=== PATIENT | male | born 1945 | race Caucasian/White ===

== ENCOUNTER 2021-04-28 19:06 | Inpatient (IN) ==
[2021-04-28] MEDS ORDERED: SODIUM CHLORIDE 0.9% 1,000 ML IV STA (19:20)
[2021-04-28 19:34] LABS: Basophils % 0.1 % (0.0-0.8); Eosinophils % 0.1 % (0.00-10.9); Hematocrit 49.3 VOL% (42.0-52.0); Hemoglobin 16.2 GM/DL (14.0-18.0); Immature Granulocytes % 1.7 %; Immature Granulocytes Absolute 0.24 #; Lymphocytes # 0.7 10*3/uL (1.4-4.0); Lymphocytes % 5.2 % (21.2-54.2); Mean Corpuscular HGB Conc 32.9 GM/DL (32-36); Mean Corpuscular Volume 91.1 FL (87-102); Mean Platelet Volume 10.6 FL (9.6-12.0); Monocytes % 7.9 % (1.7-12.7); NRBC # 0.02 10*3/uL; Platelet Count 270 T/CUMM (130-400); Red Blood Count 5.41 MC/CUMM (3.8-5.5); Red Cell Distribution Width 15.2 % (9.3-17.3)
[2021-04-28 19:48] LABS: ABG Base Excess 0.2 MMOL/L (-2.5-2.5); ABG HCO3 24.3 MMOL/L (20-26); ABG Oxygen Saturation 85.8 % (95-100); ABG PCO2 45.2 MM HG (35-48); ABG PH 7.369 (7.35-7.45); ABG PO2 57.5 MM HG (80-95); ABG TCO2 21.9 MMOL/L (23-27); Allen Test Positive
[2021-04-28 19:52] LABS: PT Patient Result 11.3 SECS (10.5-12.0)
[2021-04-28 19:54] LABS: Albumin 2.8 G/DL (3.4-5.0); Bilirubin,Total 0.5 MG/DL (0.20-1.00); Calcium 8.3 MG/DL (8.5-10.1); Total Protein 6.4 G/DL (6.4-8.2)
[2021-04-28] MEDS ORDERED: DEXAMETHASONE 4 MG/1 ML VIAL IV STA (19:56)
[2021-04-28] MEDS ORDERED: AZITHROMYCIN INJ 500 MG in SODIUM CHLORIDE 0.9% 250 ML IV STA (19:56)
[2021-04-28] MEDS ORDERED: DEXTROSE 50% 25 GM/50 ML VIAL IV PRN ×2 (21:10)
[2021-04-28] MEDS ORDERED: GLUCAGON 1 MG VIAL IM PRN ×2 (21:10)
[2021-04-28] MEDS ORDERED: MELATONIN 3 MG TABLET PO PRN (21:10)
[2021-04-28] MEDS ORDERED: ONDANSETRON 4 MG/2 ML VIAL IV PRN (21:10)
[2021-04-28] MEDS ORDERED: ZALEPLON 5 MG CAPSULE PO PRN (21:10)
[2021-04-28] MEDS: ENOXAPARIN 40 MG/0.4 ML SYRINGE SUBCUT SCH (22:20)
[2021-04-28] MEDS: methylPREDNISolone SOD SUC 40 MG/1 ML VIAL IV SCH (22:20)
[2021-04-28] MEDS: PIPERACILLIN/TAZOBACTAM 3,375 MG in SODIUM CHLORIDE 0.9% 100 ML IV SCH (22:21)
[2021-04-28] MEDS: guaiFENesin/DM ER 600-30 MG TABLET PO SCH (23:58)
[2021-04-29] MEDS: LEVOFLOXACIN INJ 750 MG/150 ML PREMIX IV SCH (03:41)
[2021-04-29] MEDS: methylPREDNISolone SOD SUC 40 MG/1 ML VIAL IV SCH ×4 (04:29→22:20)
[2021-04-29] MEDS: PIPERACILLIN/TAZOBACTAM 3,375 MG in SODIUM CHLORIDE 0.9% 100 ML IV SCH ×3 (05:11→22:20)
[2021-04-29 07:48] LABS: Albumin 2.6 G/DL (3.4-5.0); Bilirubin,Total 0.6 MG/DL (0.20-1.00); Calcium 8.4 MG/DL (8.5-10.1); Ferritin 506.1 ng/ml (26-388); Potassium 4.2 MMOL/L (3.5-5.1); Total Protein 7.4 G/DL (6.4-8.2)
[2021-04-29] MEDS: ENOXAPARIN 40 MG/0.4 ML SYRINGE SUBCUT SCH ×2 (08:17→22:19)
[2021-04-29] MEDS: guaiFENesin/DM ER 600-30 MG TABLET PO SCH ×2 (08:17→22:19)
[2021-04-29] MEDS: ZINC GLUCONATE 50 MG TABLET PO SCH (08:17)
[2021-04-29] MEDS: ASCORBIC ACID 500 MG TABLET PO SCH ×2 (08:17→22:19)
[2021-04-29] MEDS: CHOLECALCIFEROL 1,000 UNIT TABLET PO SCH (08:17)
[2021-04-29] MEDS: CETIRIZINE 10 MG TABLET PO SCH (08:17)
[2021-04-29] MEDS: FAMOTIDINE 20 MG TABLET PO SCH ×2 (08:17→22:19)
[2021-04-29 08:51] LABS: Basophils % 0.2 % (0.0-0.8); Hematocrit 50.5 VOL% (42.0-52.0); Hemoglobin 17.1 GM/DL (14.0-18.0); Immature Granulocytes % 2.4 %; Immature Granulocytes Absolute 0.28 #; Lymphocytes # 0.7 10*3/uL (1.4-4.0); Lymphocytes % 6.1 % (21.2-54.2); Mean Corpuscular HGB Conc 33.9 GM/DL (32-36); Mean Corpuscular Volume 87.7 FL (87-102); Mean Platelet Volume 10.7 FL (9.6-12.0); Monocytes % 4.1 % (1.7-12.7); Neutrophils % 87.2 % (38.7-73.9); Platelet Count 299 T/CUMM (130-400); Red Blood Count 5.76 MC/CUMM (3.8-5.5); Red Cell Distribution Width 15.1 % (9.3-17.3); White Blood Count 11.8 T/CUMM (4-12)
[2021-04-29] MEDS ORDERED: PANTOPRAZOLE 40 MG TABLET PO SCH (09:00)
[2021-04-29 09:12] LABS: Lymphocytes 7 % (20-55); Platelet Estimate Adequate; Segmented Neutrophils 87 % (50-85); Total Cells Counted 100
[2021-04-29 09:49] LABS: ABG Base Excess 1.1 MMOL/L (-2.5-2.5); ABG HCO3 25.1 MMOL/L (20-26); ABG Oxygen Saturation 87.7 % (95-100); ABG PCO2 43.6 MM HG (35-48); ABG PH 7.392 (7.35-7.45); ABG TCO2 21.9 MMOL/L (23-27)
[2021-04-29] MEDS: OXYBUTYNIN 5 MG TABLET PO SCH ×2 (10:04→22:19)
[2021-04-29] MEDS: INSULIN REGULAR 100 UNIT/ML SUBCUT SCH ×4 (10:25→22:20)
[2021-04-29] MEDS ORDERED: REMDESIVIR 200 MG in SODIUM CHLORIDE 0.9% 210 ML IV ONE (11:00)
[2021-04-29 18:17] LABS: Bilirubin,Urine Negative (Negative); Blood, Urine Large mg/dL (Negative); Glucose,Urine (UA) Negative (Negative); Hyaline Casts,Urine 28 /LPF (0-3); Ketones,Urine Negative (Negative); Mucus,Urine Occasional /LPF (Occasional); Nitrite,Urine Negative (Negative); Protein,Urine 100 MG/DL; RBC,Urine 595 /HPF (0-4); Squamous Epithelial Cell,Urine Occasional /HPF (0-10); Urine Appearance CLEAR (Clear); Urine Color Yellow (Yellow); Urine Specific Gravity 1.031 (1.001-1.035); Urine Urobilinogen < 2.0 EU/DL (0.2-1.0)
[2021-04-29 21:04] LABS: ABG Base Excess 1.9 MMOL/L (-2.5-2.5); ABG HCO3 25.7 MMOL/L (20-26); ABG Oxygen Saturation 86.5 % (95-100); ABG PCO2 45.1 MM HG (35-48); ABG PH 7.393 (7.35-7.45); ABG PO2 56.1 MM HG (80-95); ABG TCO2 22.8 MMOL/L (23-27)
[2021-04-30] MEDS: methylPREDNISolone SOD SUC 40 MG/1 ML VIAL IV SCH ×4 (05:16→20:53)
[2021-04-30] MEDS: PIPERACILLIN/TAZOBACTAM 3,375 MG in SODIUM CHLORIDE 0.9% 100 ML IV SCH ×3 (05:16→20:53)
[2021-04-30 06:11] LABS: Alanine Aminotransferase 525 U/L (16-61); Albumin 2.3 G/DL (3.4-5.0); Alkaline Phosphatase 75 U/L (45-117); Aspartate Amino Transferase 280 U/L (0-37); Bilirubin,Direct < 0.100 MG/DL (0.0-0.20); Bilirubin,Indirect 0.7 MG/DL (0.0-1.0)
[2021-04-30 06:20] LABS: Calcium 8.7 MG/DL (8.5-10.1); Osmolality,Calculated 278.1 MOS/KG (273-304); Potassium 4.2 MMOL/L (3.5-5.1)
[2021-04-30 06:22] LABS: Basophils % 0.1 % (0.0-0.8); Eosinophils # 0.1 10*3/uL (0.0-0.87); Eosinophils % 0.4 % (0.00-10.9); Hematocrit 53.5 VOL% (42.0-52.0); Hemoglobin 17.7 GM/DL (14.0-18.0); Immature Granulocytes % 3.8 %; Immature Granulocytes Absolute 0.69 #; Lymphocytes # 1.2 10*3/uL (1.4-4.0); Lymphocytes % 6.5 % (21.2-54.2); Mean Corpuscular HGB Conc 33.1 GM/DL (32-36); Mean Platelet Volume 10.9 FL (9.6-12.0); Monocytes % 5.9 % (1.7-12.7); NRBC # 0.02 10*3/uL; Neutrophils % 83.3 % (38.7-73.9); Platelet Count 311 T/CUMM (130-400); Red Blood Count 5.69 MC/CUMM (3.8-5.5); White Blood Count 18.1 T/CUMM (4-12)
[2021-04-30 06:25] LABS: Ferritin 507.3 ng/mL (26-388)
[2021-04-30 06:49] LABS: Lymphocytes 9 % (20-55); Segmented Neutrophils 87 % (50-85); Total Cells Counted 100
[2021-04-30 06:50] LABS: Hypochromasia 1+; Target Cells Slight
[2021-04-30 06:51] LABS: Anisocytosis 1+; Microcytosis 1+; Platelet Estimate Normal
[2021-04-30 08:46] LABS: ABG Base Excess 2.8 MMOL/L (-2.5-2.5); ABG HCO3 26.3 MMOL/L (20-26); ABG Oxygen Saturation 81.9 % (95-100); ABG PCO2 43.3 MM HG (35-48); ABG PH 7.416 (7.35-7.45); ABG PO2 50.1 MM HG (80-95)
[2021-04-30] MEDS: guaiFENesin/DM ER 600-30 MG TABLET PO SCH ×2 (09:29→20:50)
[2021-04-30] MEDS: FAMOTIDINE 20 MG TABLET PO SCH ×2 (09:30→20:50)
[2021-04-30] MEDS: ZINC GLUCONATE 50 MG TABLET PO SCH (09:30)
[2021-04-30] MEDS: CHOLECALCIFEROL 1,000 UNIT TABLET PO SCH (09:30)
[2021-04-30] MEDS: ASCORBIC ACID 500 MG TABLET PO SCH ×2 (09:30→20:51)
[2021-04-30] MEDS: ENOXAPARIN 40 MG/0.4 ML SYRINGE SUBCUT SCH (09:30)
[2021-04-30] MEDS: CETIRIZINE 10 MG TABLET PO SCH (09:30)
[2021-04-30] MEDS: OXYBUTYNIN 5 MG TABLET PO SCH ×2 (09:30→20:50)
[2021-04-30] MEDS: INSULIN REGULAR 100 UNIT/ML SUBCUT SCH ×4 (09:31→20:51)
[2021-04-30] MEDS: LEVOFLOXACIN INJ 750 MG/150 ML PREMIX IV SCH (09:31)
[2021-04-30] MEDS: REMDESIVIR 100 MG in SODIUM CHLORIDE 0.9% 100 ML IV SCH (11:18)
[2021-04-30] MEDS: ENOXAPARIN 120 MG/0.8 ML SYRINGE SUBCUT SCH (14:46)
[2021-04-30] MEDS: MELATONIN 3 MG TABLET PO SCH (20:57)
[2021-04-30] MEDS: ALBUTEROL INHALER 18 GM INH SCH (22:35)
[2021-04-30] MEDS: CHOLECALCIFEROL 5,000 UNIT TABLET PO SCH (22:35)
[2021-04-30] MEDS: ACETAMINOPHEN 325 MG TABLET PO PRN (23:53)
[2021-05-01] MEDS: ENOXAPARIN 120 MG/0.8 ML SYRINGE SUBCUT SCH ×2 (02:05→13:37)
[2021-05-01] MEDS: methylPREDNISolone SOD SUC 40 MG/1 ML VIAL IV SCH ×4 (02:05→20:32)
[2021-05-01] MEDS: ALBUTEROL INHALER 18 GM INH SCH ×5 (02:05→20:32)
[2021-05-01] MEDS: PIPERACILLIN/TAZOBACTAM 3,375 MG in SODIUM CHLORIDE 0.9% 100 ML IV SCH ×3 (04:08→20:32)
[2021-05-01 05:58] LABS: Basophils # 0.1 10*3/uL (0.0-0.2); Basophils % 0.3 % (0.0-0.8); Hematocrit 49.6 VOL% (42.0-52.0); Hemoglobin 16.3 GM/DL (14.0-18.0); Immature Granulocytes Absolute 0.23 #; Lymphocytes # 0.6 10*3/uL (1.4-4.0); Lymphocytes % 2.8 % (21.2-54.2); Mean Corpuscular HGB Conc 32.9 GM/DL (32-36); Mean Corpuscular Volume 90.5 FL (87-102); Mean Platelet Volume 10.5 FL (9.6-12.0); Monocytes % 3.4 % (1.7-12.7); NRBC # 0.04 10*3/uL; Neutrophils % 92.5 % (38.7-73.9); Platelet Count 326 T/CUMM (130-400); Red Blood Count 5.48 MC/CUMM (3.8-5.5); Red Cell Distribution Width 15.1 % (9.3-17.3); White Blood Count 22.2 T/CUMM (4-12)
[2021-05-01 06:27] LABS: Calcium 8.8 MG/DL (8.5-10.1); Osmolality,Calculated 280.1 MOS/KG (273-304); Potassium 4.5 MMOL/L (3.5-5.1)
[2021-05-01 06:36] LABS: Ferritin 474.4 ng/mL (26-388)
[2021-05-01 06:40] LABS: Albumin 2.3 G/DL (3.4-5.0); Bilirubin,Direct 0.22 MG/DL (0.0-0.20); Bilirubin,Indirect 0.8 MG/DL (0.0-1.0); Total Protein 6.4 G/DL (6.4-8.2)
[2021-05-01 06:48] LABS: Band Neutrophils 15 % (0-10); Lymphocytes 5 % (20-55); Platelet Estimate Normal; Segmented Neutrophils 75 % (50-85); Total Cells Counted 100
[2021-05-01 06:49] LABS: Anisocytosis 1+; Macrocytosis 1+; Polychromasia Slight
[2021-05-01] MEDS: INSULIN REGULAR 100 UNIT/ML SUBCUT SCH ×4 (07:20→21:40)
[2021-05-01] MEDS: OXYBUTYNIN 5 MG TABLET PO SCH ×2 (08:45→20:32)
[2021-05-01] MEDS: guaiFENesin/DM ER 600-30 MG TABLET PO SCH ×2 (08:45→20:32)
[2021-05-01] MEDS: CHOLECALCIFEROL 5,000 UNIT TABLET PO SCH ×2 (08:46→20:32)
[2021-05-01] MEDS: FAMOTIDINE 20 MG TABLET PO SCH ×2 (08:46→20:32)
[2021-05-01] MEDS: ASCORBIC ACID 500 MG TABLET PO SCH ×2 (08:46→20:32)
[2021-05-01] MEDS: CETIRIZINE 10 MG TABLET PO SCH (08:48)
[2021-05-01] MEDS: ZINC GLUCONATE 50 MG TABLET PO SCH (08:48)
[2021-05-01] MEDS: LEVOFLOXACIN INJ 750 MG/150 ML PREMIX IV SCH (09:15)
[2021-05-01] MEDS: REMDESIVIR 100 MG in SODIUM CHLORIDE 0.9% 100 ML IV SCH (10:52)
[2021-05-01] MEDS: MELATONIN 3 MG TABLET PO SCH (20:32)
[2021-05-01] MEDS ORDERED: ALBUTEROL/IPRATROPIUM 3 ML NEB RESP TX PRN (20:50)
[2021-05-01] MEDS ORDERED: ACETYLCYSTEINE 20% 800 MG/4 ML VIAL RESP TX SCH (23:00)
[2021-05-01] MEDS: ACETYLCYSTEINE 20% 800 MG/4 ML VIAL RESP TX SCH (23:55)
[2021-05-01] MEDS: ALBUTEROL/IPRATROPIUM 3 ML NEB RESP TX SCH (23:55)
[2021-05-02] MEDS: ALBUTEROL INHALER 18 GM INH SCH ×6 (00:18→20:55)
[2021-05-02] MEDS: ALBUTEROL/IPRATROPIUM 3 ML NEB RESP TX SCH ×5 (03:00→20:00)
[2021-05-02] MEDS: PIPERACILLIN/TAZOBACTAM 3,375 MG in SODIUM CHLORIDE 0.9% 100 ML IV SCH ×3 (04:02→20:55)
[2021-05-02] MEDS: methylPREDNISolone SOD SUC 40 MG/1 ML VIAL IV SCH ×4 (04:02→20:57)
[2021-05-02 05:16] LABS: Basophils # 0.1 10*3/uL (0.0-0.2); Basophils % 0.3 % (0.0-0.8); Hematocrit 48.1 VOL% (42.0-52.0); Hemoglobin 16.3 GM/DL (14.0-18.0); Immature Granulocytes % 1.6 %; Immature Granulocytes Absolute 0.38 #; Lymphocytes # 0.7 10*3/uL (1.4-4.0); Lymphocytes % 3.1 % (21.2-54.2); Mean Corpuscular HGB Conc 33.9 GM/DL (32-36); Mean Corpuscular Volume 89.4 FL (87-102); Mean Platelet Volume 10.2 FL (9.6-12.0); Monocytes % 2.8 % (1.7-12.7); Neutrophils % 92.2 % (38.7-73.9); Platelet Count 348 T/CUMM (130-400); Red Blood Count 5.38 MC/CUMM (3.8-5.5); Red Cell Distribution Width 15.2 % (9.3-17.3); White Blood Count 24.2 T/CUMM (4-12)
[2021-05-02 05:34] LABS: Calcium 8.3 MG/DL (8.5-10.1); Osmolality,Calculated 282.1 MOS/KG (273-304); Potassium 4.4 MMOL/L (3.5-5.1)
[2021-05-02 05:35] LABS: Bilirubin,Direct 0.22 MG/DL (0.0-0.20); Bilirubin,Indirect 0.9 MG/DL (0.0-1.0); Bilirubin,Total 1.1 MG/DL (0.20-1.00); Total Protein 6.2 G/DL (6.4-8.2)
[2021-05-02 05:37] LABS: Ferritin 442.4 ng/mL (26-388)
[2021-05-02 05:47] LABS: Hypochromasia Slight; Lymphocytes 2 % (20-55); Microcytosis 1+; Platelet Estimate Normal; Segmented Neutrophils 93 % (50-85); Total Cells Counted 100
[2021-05-02] MEDS: ACETYLCYSTEINE 20% 800 MG/4 ML VIAL RESP TX SCH ×2 (06:57→15:06)
[2021-05-02 09:31] LABS: ABG Base Excess 3.8 MMOL/L (-2.5-2.5); ABG HCO3 27.5 MMOL/L (20-26); ABG Oxygen Saturation 89.1 % (95-100); ABG PCO2 48.1 MM HG (35-48); ABG PH 7.399 (7.35-7.45); ABG TCO2 24.8 MMOL/L (23-27)
[2021-05-02] MEDS: ASCORBIC ACID 500 MG TABLET PO SCH ×2 (10:23→20:56)
[2021-05-02] MEDS: CETIRIZINE 10 MG TABLET PO SCH (10:23)
[2021-05-02] MEDS: ZINC GLUCONATE 50 MG TABLET PO SCH (10:23)
[2021-05-02] MEDS: OXYBUTYNIN 5 MG TABLET PO SCH ×2 (10:24→20:56)
[2021-05-02] MEDS: CHOLECALCIFEROL 5,000 UNIT TABLET PO SCH ×2 (10:24→20:56)
[2021-05-02] MEDS: FAMOTIDINE 20 MG TABLET PO SCH ×2 (10:24→20:56)
[2021-05-02] MEDS: guaiFENesin/DM ER 600-30 MG TABLET PO SCH ×2 (10:24→20:56)
[2021-05-02] MEDS: INSULIN REGULAR 100 UNIT/ML SUBCUT SCH ×4 (10:25→20:57)
[2021-05-02] MEDS: THIAMINE 200 MG/2 ML VIAL IV SCH (10:40)
[2021-05-02] MEDS: LEVOFLOXACIN INJ 750 MG/150 ML PREMIX IV SCH (10:53)
[2021-05-02] MEDS: ENOXAPARIN 120 MG/0.8 ML SYRINGE SUBCUT SCH ×2 (11:54→20:56)
[2021-05-02] MEDS: REMDESIVIR 100 MG in SODIUM CHLORIDE 0.9% 100 ML IV SCH (12:41)
[2021-05-02] MEDS: SODIUM CHLORIDE 0.9% 1,000 ML IV SCH (12:44)
[2021-05-02] MEDS: MELATONIN 3 MG TABLET PO SCH (20:56)
[2021-05-03] MEDS: ALBUTEROL/IPRATROPIUM 3 ML NEB RESP TX SCH ×7 (00:10→23:50)
[2021-05-03] MEDS: ACETYLCYSTEINE 20% 800 MG/4 ML VIAL RESP TX SCH ×4 (00:10→23:50)
[2021-05-03] MEDS: ALBUTEROL INHALER 18 GM INH SCH ×4 (03:07→17:31)
[2021-05-03] MEDS: methylPREDNISolone SOD SUC 40 MG/1 ML VIAL IV SCH ×4 (04:35→19:58)
[2021-05-03] MEDS: PIPERACILLIN/TAZOBACTAM 3,375 MG in SODIUM CHLORIDE 0.9% 100 ML IV SCH ×2 (04:40→13:02)
[2021-05-03 05:24] LABS: ABG Base Excess 3.3 MMOL/L (-2.5-2.5); ABG HCO3 27.9 MMOL/L (20-26); ABG Oxygen Saturation 79.9 % (95-100); ABG PCO2 42.2 MM HG (35-48); ABG PH 7.438 (7.35-7.45); ABG PO2 48.6 MM HG (80-95); ABG TCO2 29.2 MMOL/L (23-27)
[2021-05-03 05:52] LABS: Basophils # 0.1 10*3/uL (0.0-0.2); Basophils % 0.3 % (0.0-0.8); Hematocrit 48.2 VOL% (42.0-52.0); Hemoglobin 15.8 GM/DL (14.0-18.0); Immature Granulocytes Absolute 0.53 #; Lymphocytes # 0.5 10*3/uL (1.4-4.0); Lymphocytes % 1.8 % (21.2-54.2); Mean Corpuscular HGB Conc 32.8 GM/DL (32-36); Mean Corpuscular Volume 90.9 FL (87-102); Mean Platelet Volume 10.1 FL (9.6-12.0); Monocytes % 1.9 % (1.7-12.7); Platelet Count 396 T/CUMM (130-400); Red Cell Distribution Width 14.9 % (9.3-17.3); White Blood Count 26.6 T/CUMM (4-12)
[2021-05-03 06:15] LABS: Albumin 2.1 G/DL (3.4-5.0); Bilirubin,Direct 0.21 MG/DL (0.0-0.20); Bilirubin,Indirect 0.6 MG/DL (0.0-1.0); Bilirubin,Total 0.8 MG/DL (0.20-1.00); Total Protein 6.5 G/DL (6.4-8.2)
[2021-05-03 06:18] LABS: Lymphocytes 4 % (20-55); Platelet Estimate Adequate; Segmented Neutrophils 94 % (50-85); Total Cells Counted 100
[2021-05-03 06:20] LABS: Ferritin 364.9 ng/mL (26-388)
[2021-05-03 06:27] LABS: Bilirubin,Total 1.9 MG/DL (0.20-1.00); Calcium 8.4 MG/DL (8.5-10.1); Osmolality,Calculated 284.8 MOS/KG (273-304); Potassium 5.8 MMOL/L (3.5-5.1)
[2021-05-03] MEDS ORDERED: FUROSEMIDE 40 MG/4 ML VIAL IV ONE (10:00)
[2021-05-03] MEDS: guaiFENesin/DM ER 600-30 MG TABLET PO SCH ×2 (10:42→21:44)
[2021-05-03] MEDS: ENOXAPARIN 120 MG/0.8 ML SYRINGE SUBCUT SCH ×2 (10:42→21:43)
[2021-05-03] MEDS: OXYBUTYNIN 5 MG TABLET PO SCH ×2 (10:42→21:43)
[2021-05-03] MEDS: INSULIN REGULAR 100 UNIT/ML SUBCUT SCH ×4 (10:42→21:43)
[2021-05-03] MEDS: FAMOTIDINE 20 MG TABLET PO SCH ×2 (10:43→21:44)
[2021-05-03] MEDS: THIAMINE 200 MG/2 ML VIAL IV SCH (10:43)
[2021-05-03] MEDS: ZINC GLUCONATE 50 MG TABLET PO SCH (10:44)
[2021-05-03] MEDS: LEVOFLOXACIN INJ 750 MG/150 ML PREMIX IV SCH (10:44)
[2021-05-03] MEDS: CETIRIZINE 10 MG TABLET PO SCH (10:44)
[2021-05-03] MEDS: CHOLECALCIFEROL 5,000 UNIT TABLET PO SCH ×2 (10:44→21:44)
[2021-05-03] MEDS: ASCORBIC ACID 500 MG TABLET PO SCH ×2 (10:44→21:44)
[2021-05-03] MEDS: SODIUM CHLORIDE 0.9% 1,000 ML IV SCH (11:36)
[2021-05-03] MEDS: REMDESIVIR 100 MG in SODIUM CHLORIDE 0.9% 100 ML IV SCH (12:10)
[2021-05-03] MEDS: DEXMEDETOMIDINE 200 MCG in SODIUM CHLORIDE 0.9% 48 ML IV PRN ×2 (12:18→16:12)
[2021-05-03] MEDS ORDERED: SODIUM ZIRCONIUM CYCLOSILICATE 10 GM PACK PO SCH (14:00)
[2021-05-03] MEDS: MEROPENEM 500 MG in SODIUM CHLORIDE 0.9% 100 ML IV SCH ×2 (14:59→20:03)
[2021-05-03] MEDS: MONTELUKAST 10 MG TABLET PO SCH (14:59)
[2021-05-03] MEDS ORDERED: hydrALAZINE 20 MG/1 ML VIAL IV PRN (16:34)
[2021-05-03] MEDS ORDERED: ETOMIDATE 20 MG/10 ML VIAL IV ONE (17:06)
[2021-05-03] MEDS ORDERED: SUCCINYLCHOLINE 200 MG/10 ML VIAL ONE (17:07)
[2021-05-03] MEDS ORDERED: LORazepam 2 MG/1 ML VIAL ONE (17:08)
[2021-05-03] MEDS ORDERED: LORazepam 2 MG/1 ML VIAL IV ONE (17:13)
[2021-05-03] MEDS: DEXMEDETOMIDINE 400 MCG in SODIUM CHLORIDE 0.9% 96 ML IV PRN (18:32)
[2021-05-03] MEDS: MELATONIN 3 MG TABLET PO SCH (21:43)
[2021-05-04] MEDS: DEXMEDETOMIDINE 400 MCG in SODIUM CHLORIDE 0.9% 96 ML IV PRN ×3 (00:05→18:31)
[2021-05-04] MEDS: methylPREDNISolone SOD SUC 40 MG/1 ML VIAL IV SCH ×4 (01:23→20:30)
[2021-05-04] MEDS: MEROPENEM 500 MG in SODIUM CHLORIDE 0.9% 100 ML IV SCH ×4 (01:27→20:50)
[2021-05-04] MEDS: ALBUTEROL/IPRATROPIUM 3 ML NEB RESP TX SCH ×2 (03:08→07:30)
[2021-05-04 04:14] LABS: Basophils % 0.2 % (0.0-0.8); Hematocrit 51.8 VOL% (42.0-52.0); Immature Granulocytes % 1.2 %; Immature Granulocytes Absolute 0.27 #; Lymphocytes # 0.4 10*3/uL (1.4-4.0); Lymphocytes % 1.9 % (21.2-54.2); Mean Corpuscular HGB Conc 32.8 GM/DL (32-36); Mean Corpuscular Volume 89.5 FL (87-102); Mean Platelet Volume 10.1 FL (9.6-12.0); Neutrophils % 93.7 % (38.7-73.9); Platelet Count 367 T/CUMM (130-400); Red Blood Count 5.79 MC/CUMM (3.8-5.5); White Blood Count 21.8 T/CUMM (4-12)
[2021-05-04 04:47] LABS: Calcium 8.7 MG/DL (8.5-10.1); Osmolality,Calculated 290.5 MOS/KG (273-304)
[2021-05-04 05:34] LABS: Albumin 2.1 G/DL (3.4-5.0); Bilirubin,Direct 0.2 MG/DL (0.0-0.20); Bilirubin,Indirect 0.5 MG/DL (0.0-1.0); Bilirubin,Total 0.7 MG/DL (0.20-1.00); Total Protein 6.8 G/DL (6.4-8.2)
[2021-05-04 07:04] LABS: Anisocytosis Slight; Band Neutrophils 1 % (0-10); Lymphocytes 1 % (20-55); Platelet Estimate Normal; Segmented Neutrophils 96 % (50-85); Total Cells Counted 100
[2021-05-04] MEDS: ACETYLCYSTEINE 20% 800 MG/4 ML VIAL RESP TX SCH (07:30)
[2021-05-04] MEDS: ENOXAPARIN 120 MG/0.8 ML SYRINGE SUBCUT SCH ×2 (08:57→20:30)
[2021-05-04] MEDS: FUROSEMIDE 40 MG/4 ML VIAL IV SCH (09:03)
[2021-05-04] MEDS: FAMOTIDINE 20 MG/2 ML VIAL IV SCH ×2 (09:05→20:31)
[2021-05-04] MEDS: INSULIN REGULAR 100 UNIT/ML SUBCUT SCH ×4 (09:06→20:44)
[2021-05-04] MEDS: LORazepam 2 MG/1 ML VIAL IV PRN ×3 (10:06→22:25)
[2021-05-04] MEDS ORDERED: ALBUTEROL INHALER 18 GM INH SCH (11:00)
[2021-05-04] MEDS: ALBUTEROL INHALER 18 GM INH SCH ×3 (15:08→20:30)
[2021-05-04] MEDS: MELATONIN 3 MG TABLET PO SCH (23:22)
[2021-05-05] MEDS: methylPREDNISolone SOD SUC 40 MG/1 ML VIAL IV SCH ×4 (01:55→20:25)
[2021-05-05] MEDS: MEROPENEM 500 MG in SODIUM CHLORIDE 0.9% 100 ML IV SCH ×4 (01:57→20:25)
[2021-05-05 03:42] LABS: ABG Base Excess 6.8 MMOL/L (-2.5-2.5); ABG HCO3 32.2 MMOL/L (20-26); ABG Oxygen Saturation 80.7 % (95-100); ABG PCO2 46.8 MM HG (35-48); ABG PH 7.455 (7.35-7.45); ABG PO2 49.3 MM HG (80-95); ABG TCO2 33.6 MMOL/L (23-27); Allen Test Positive; Pt O2 Delivery Device Other
[2021-05-05] MEDS: ALBUTEROL INHALER 18 GM INH SCH ×5 (03:45→20:25)
[2021-05-05 04:01] LABS: Basophils % 0.2 % (0.0-0.8); Hemoglobin 18.2 GM/DL (14.0-18.0); Immature Granulocytes % 1.4 %; Immature Granulocytes Absolute 0.26 #; Lymphocytes # 0.3 10*3/uL (1.4-4.0); Lymphocytes % 1.8 % (21.2-54.2); Mean Corpuscular HGB Conc 33.7 GM/DL (32-36); Mean Corpuscular Volume 90.2 FL (87-102); Mean Platelet Volume 10.9 FL (9.6-12.0); Monocytes % 4.3 % (1.7-12.7); Neutrophils % 92.3 % (38.7-73.9); Platelet Count 369 T/CUMM (130-400); Red Blood Count 5.99 MC/CUMM (3.8-5.5); Red Cell Distribution Width 16.6 % (9.3-17.3); White Blood Count 18.1 T/CUMM (4-12)
[2021-05-05 04:23] LABS: Calcium 8.4 MG/DL (8.5-10.1); Ferritin 190.9 ng/mL (26-388); Osmolality,Calculated 301.8 MOS/KG (273-304); Potassium 4.3 MMOL/L (3.5-5.1)
[2021-05-05] MEDS: DEXMEDETOMIDINE 400 MCG in SODIUM CHLORIDE 0.9% 96 ML IV PRN ×2 (05:00→19:18)
[2021-05-05 05:55] LABS: Band Neutrophils 6 % (0-10); Lymphocytes 1 % (20-55); Metamyelocytes 1 %; Platelet Estimate Normal; Segmented Neutrophils 89 % (50-85); Total Cells Counted 100
[2021-05-05 05:56] LABS: Anisocytosis Slight; Macrocytosis 1+
[2021-05-05] MEDS ORDERED: INSULIN REGULAR 100 UNIT/ML ONE (08:22)
[2021-05-05] MEDS: FUROSEMIDE 40 MG/4 ML VIAL IV SCH (08:42)
[2021-05-05] MEDS: FAMOTIDINE 20 MG/2 ML VIAL IV SCH ×2 (08:46→20:30)
[2021-05-05] MEDS: ENOXAPARIN 120 MG/0.8 ML SYRINGE SUBCUT SCH ×2 (08:46→20:30)
[2021-05-05] MEDS ORDERED: ZINC/COPPER/MANGANESE/SELENIUM 1 ML, MULTIVITAMIN INJ 10 ML in AMINO ACIDS/DEXT/LYTES 4... IV SCH (09:00)
[2021-05-05] MEDS: LORazepam 2 MG/1 ML VIAL IV PRN (09:03)
[2021-05-05] MEDS: INSULIN REGULAR 100 UNIT/ML SUBCUT SCH ×3 (09:04→18:47)
[2021-05-05] MEDS ORDERED: ETOMIDATE 20 MG/10 ML VIAL IV ONE ×2 (11:05)
[2021-05-05] MEDS ORDERED: SUCCINYLCHOLINE 200 MG/10 ML VIAL IV ONE (11:05)
[2021-05-05] MEDS ORDERED: SUCCINYLCHOLINE 200 MG/10 ML VIAL ONE (11:06)
[2021-05-05] MEDS ORDERED: SODIUM CHLORIDE 0.9% 1,000 ML IV ONE (12:28)
[2021-05-05] MEDS: MIDAZOLAM 100 MG in SODIUM CHLORIDE 0.9% 80 ML IV PRN (12:44)
[2021-05-05 12:48] LABS: ABG Base Excess 8.2 MMOL/L (-2.5-2.5); ABG HCO3 31.3 MMOL/L (20-26); ABG Oxygen Saturation 79.1 % (95-100); ABG PCO2 64.1 MM HG (35-48); ABG PH 7.373 (7.35-7.45); ABG PO2 50.9 MM HG (80-95); ABG TCO2 30.7 MMOL/L (23-27)
[2021-05-05] MEDS: fentaNYL INJ 1,250 MCG in SODIUM CHLORIDE 0.9% 225 ML IV PRN ×2 (17:00→22:08)
[2021-05-05 17:23] LABS: ABG Base Excess 7.9 MMOL/L (-2.5-2.5); ABG Oxygen Saturation 80.4 % (95-100); ABG PCO2 68.1 MM HG (35-48); ABG PH 7.353 (7.35-7.45); ABG PO2 53.4 MM HG (80-95); ABG TCO2 31.1 MMOL/L (23-27); Allen Test Positive; Pt O2 Delivery Device Ventilator
[2021-05-05] MEDS: ASCORBIC ACID 500 MG TABLET PO SCH (20:30)
[2021-05-05] MEDS: MELATONIN 3 MG TABLET PO SCH (20:30)
[2021-05-06] MEDS: INSULIN REGULAR 100 UNIT/ML SUBCUT SCH ×4 (00:56→18:57)
[2021-05-06] MEDS: ALBUTEROL INHALER 18 GM INH SCH ×5 (00:57→20:00)
[2021-05-06] MEDS: methylPREDNISolone SOD SUC 40 MG/1 ML VIAL IV SCH ×4 (00:58→21:16)
[2021-05-06] MEDS: MEROPENEM 500 MG in SODIUM CHLORIDE 0.9% 100 ML IV SCH ×4 (00:58→20:30)
[2021-05-06 03:20] LABS: ABG Base Excess 1.7 MMOL/L (-2.5-2.5); ABG HCO3 32.9 MMOL/L (20-26); ABG Oxygen Saturation 85.2 % (95-100); ABG PH 7.239 (7.35-7.45); ABG PO2 64.4 MM HG (80-95); ABG TCO2 35.3 MMOL/L (23-27); Allen Test Positive; Pt O2 Delivery Device Ventilator
[2021-05-06 03:25] LABS: ABG PCO2 78.7 MM HG (35-48)
[2021-05-06 04:49] LABS: Basophils # 0.1 10*3/uL (0.0-0.2); Basophils % 0.5 % (0.0-0.8); Hematocrit 57.4 VOL% (42.0-52.0); Hemoglobin 17.8 GM/DL (14.0-18.0); Immature Granulocytes % 2.5 %; Immature Granulocytes Absolute 0.43 #; Lymphocytes # 0.2 10*3/uL (1.4-4.0); Lymphocytes % 1.2 % (21.2-54.2); Mean Corpuscular Volume 97.5 FL (87-102); Mean Platelet Volume 10.8 FL (9.6-12.0); NRBC # 0.03 10*3/uL; Neutrophils % 91.8 % (38.7-73.9); Platelet Count 356 T/CUMM (130-400); Red Blood Count 5.89 MC/CUMM (3.8-5.5); Red Cell Distribution Width 16.8 % (9.3-17.3); White Blood Count 17.4 T/CUMM (4-12)
[2021-05-06] MEDS: fentaNYL INJ 1,250 MCG in SODIUM CHLORIDE 0.9% 225 ML IV PRN (04:49)
[2021-05-06] MEDS: DEXMEDETOMIDINE 400 MCG in SODIUM CHLORIDE 0.9% 96 ML IV PRN ×2 (04:51→23:51)
[2021-05-06 05:02] LABS: Band Neutrophils 1 % (0-10); Lymphocytes 2 % (20-55); Platelet Estimate Adequate; Segmented Neutrophils 94 % (50-85); Total Cells Counted 100
[2021-05-06 05:13] LABS: Bilirubin,Total 0.7 MG/DL (0.20-1.00); Calcium 7.8 MG/DL (8.5-10.1); Ferritin 198.5 ng/mL (26-388); Osmolality,Calculated 317.4 MOS/KG (273-304); Total Protein 6.1 G/DL (6.4-8.2)
[2021-05-06 06:35] VITALS: BP 80/52
[2021-05-06] MEDS: SODIUM CHLORIDE 0.9% 500 ML IV SCH ×2 (07:18→12:53)
[2021-05-06] MEDS ORDERED: DEXTROSE 10% 1,000 ML IV PRN (07:27)
[2021-05-06] MEDS: MIDAZOLAM 100 MG in SODIUM CHLORIDE 0.9% 80 ML IV PRN (07:30)
[2021-05-06] MEDS: ZINC GLUCONATE 50 MG TABLET PO SCH (09:17)
[2021-05-06] MEDS: ASCORBIC ACID 500 MG TABLET PO SCH ×2 (09:17→21:17)
[2021-05-06] MEDS: MONTELUKAST 10 MG TABLET PO SCH (09:17)
[2021-05-06] MEDS: CETIRIZINE 10 MG TABLET PO SCH (09:17)
[2021-05-06] MEDS: CHOLECALCIFEROL 5,000 UNIT TABLET PO SCH (09:17)
[2021-05-06] MEDS: ENOXAPARIN 120 MG/0.8 ML SYRINGE SUBCUT SCH ×2 (09:30→21:16)
[2021-05-06] MEDS: THIAMINE 200 MG/2 ML VIAL IV SCH (09:33)
[2021-05-06] MEDS: FAMOTIDINE 20 MG/2 ML VIAL IV SCH ×2 (09:40→22:13)
[2021-05-06 12:07] LABS: ABG Base Excess 3.1 MMOL/L (-2.5-2.5); ABG Oxygen Saturation 86.5 % (95-100); ABG PH 7.243 (7.35-7.45); ABG TCO2 36.5 MMOL/L (23-27)
[2021-05-06 12:09] LABS: ABG PCO2 80.6 MM HG (35-48)
[2021-05-06] MEDS: NOREPINEPHRINE 8 MG in SODIUM CHLORIDE 0.9% 242 ML IV PRN (12:45)
[2021-05-06] MEDS: SODIUM BICARB INJ 100 MEQ in SODIUM CHLORIDE 0.45% 1,000 ML IV SCH (12:48)
[2021-05-06] MEDS: SODIUM CHLORIDE 0.9% 1,000 ML IV SCH (12:52)
[2021-05-06 13:01] LABS: Albumin 1.8 G/DL (3.4-5.0); Bilirubin,Total 0.6 MG/DL (0.20-1.00); Calcium 7.4 MG/DL (8.5-10.1); Osmolality,Calculated 325.3 MOS/KG (273-304); Total Protein 5.5 G/DL (6.4-8.2)
[2021-05-06 13:03] LABS: Potassium 6.1 MMOL/L (3.5-5.1)
[2021-05-06] MEDS: SODIUM POLYSTYRENE SULFATE 15 GM/60 ML BOTTLE RECTAL SCH ×2 (13:30→21:14)
[2021-05-06] MEDS: ACETAMINOPHEN 325 MG TABLET PO PRN ×2 (16:13→21:18)
[2021-05-06] MEDS: SODIUM ZIRCONIUM CYCLOSILICATE 10 GM PACK PER TUBE SCH ×2 (19:01→22:08)
[2021-05-06] MEDS: fentaNYL INJ 2,500 MCG in SODIUM CHLORIDE 0.9% 75 ML IV PRN (19:25)
[2021-05-06] MEDS: MELATONIN 3 MG TABLET PO SCH (22:08)
[2021-05-06] MEDS ORDERED: DEXTROSE 50% 25 GM/50 ML VIAL IV PRN (23:16)
[2021-05-06] MEDS ORDERED: GLUCAGON 1 MG VIAL IM PRN (23:16)
[2021-05-06 23:30] LABS: ABG Base Excess 3.9 MMOL/L (-2.5-2.5); ABG HCO3 27.5 MMOL/L (20-26); ABG Oxygen Saturation 86.5 % (95-100); ABG PH 7.255 (7.35-7.45); ABG PO2 60.4 MM HG (80-95); ABG TCO2 30.7 MMOL/L (23-27)
[2021-05-06] MEDS ORDERED: SODIUM BICARBONATE 50 MEQ/50 ML VIAL IV ONE ×2 (23:35→23:50)
[2021-05-06 23:53] LABS: Calcium 7.1 MG/DL (8.5-10.1); Osmolality,Calculated 340.9 MOS/KG (273-304); Potassium 5.3 MMOL/L (3.5-5.1)
[2021-05-07] MEDS: SODIUM ZIRCONIUM CYCLOSILICATE 10 GM PACK PER TUBE SCH ×2 (00:48→09:09)
[2021-05-07] MEDS ORDERED: SODIUM CHLORIDE 0.9% 500 ML IV ONE (00:56)
[2021-05-07] MEDS: SODIUM BICARB INJ 100 MEQ in SODIUM CHLORIDE 0.45% 1,000 ML IV SCH ×2 (00:59→09:11)
[2021-05-07] MEDS ORDERED: SODIUM POLYSTYRENE SULFATE 15 GM/60 ML BOTTLE ONE (01:08)
[2021-05-07] MEDS: SODIUM POLYSTYRENE SULFATE 15 GM/60 ML BOTTLE RECTAL SCH (01:25)
[2021-05-07] MEDS: MEROPENEM 500 MG in SODIUM CHLORIDE 0.9% 100 ML IV SCH ×2 (01:25→06:34)
[2021-05-07] MEDS: ALBUTEROL INHALER 18 GM INH SCH ×7 (01:25→23:50)
[2021-05-07] MEDS: INSULIN REGULAR 100 UNIT/ML SUBCUT SCH ×4 (01:25→17:35)
[2021-05-07] MEDS: methylPREDNISolone SOD SUC 40 MG/1 ML VIAL IV SCH ×4 (01:26→18:24)
[2021-05-07] MEDS: ACETAMINOPHEN 325 MG TABLET PO PRN ×4 (02:15→17:55)
[2021-05-07] MEDS: NOREPINEPHRINE 8 MG in SODIUM CHLORIDE 0.9% 242 ML IV PRN ×3 (02:37→19:30)
[2021-05-07 04:09] LABS: Allen Test Positive; Pt O2 Delivery Device Ventilator
[2021-05-07 04:25] LABS: ABG Base Excess 4.1 MMOL/L (-2.5-2.5); ABG HCO3 27.7 MMOL/L (20-26); ABG PH 7.253 (7.35-7.45); ABG PO2 65.8 MM HG (80-95)
[2021-05-07 04:28] LABS: ABG PCO2 83.8 MM HG (35-48)
[2021-05-07 05:08] LABS: Calcium 7.2 MG/DL (8.5-10.1); Osmolality,Calculated 347.6 MOS/KG (273-304); Potassium 4.5 MMOL/L (3.5-5.1)
[2021-05-07 05:15] LABS: Basophils # 0.1 10*3/uL (0.0-0.2); Basophils % 0.3 % (0.0-0.8); Hematocrit 58.8 VOL% (42.0-52.0); Hemoglobin 18.3 GM/DL (14.0-18.0); Immature Granulocytes % 2.3 %; Immature Granulocytes Absolute 0.48 #; Lymphocytes # 0.8 10*3/uL (1.4-4.0); Lymphocytes % 4.1 % (21.2-54.2); Mean Corpuscular HGB Conc 31.1 GM/DL (32-36); Mean Corpuscular Volume 98.2 FL (87-102); Mean Platelet Volume 11.1 FL (9.6-12.0); Monocytes % 6.5 % (1.7-12.7); NRBC # 0.35 10*3/uL; Neutrophils % 86.8 % (38.7-73.9); Platelet Count 368 T/CUMM (130-400); Red Blood Count 5.99 MC/CUMM (3.8-5.5); Red Cell Distribution Width 17.7 % (9.3-17.3); White Blood Count 20.5 T/CUMM (4-12)
[2021-05-07 05:26] LABS: Lymphocytes 7 % (20-55); Nucleated Red Blood Cells 1 (0-5); Platelet Estimate Adequate; Segmented Neutrophils 88 % (50-85); Total Cells Counted 100
[2021-05-07] MEDS: ASCORBIC ACID 500 MG TABLET PO SCH ×2 (08:19→20:24)
[2021-05-07] MEDS: ZINC GLUCONATE 50 MG TABLET PO SCH (08:19)
[2021-05-07] MEDS: MONTELUKAST 10 MG TABLET PO SCH (08:20)
[2021-05-07] MEDS: CHOLECALCIFEROL 5,000 UNIT TABLET PO SCH (08:20)
[2021-05-07] MEDS: CETIRIZINE 10 MG TABLET PO SCH (08:20)
[2021-05-07] MEDS: THIAMINE 200 MG/2 ML VIAL IV SCH (08:20)
[2021-05-07] MEDS ORDERED: LACTATED RINGERS 1,000 ML IV SCH (09:00)
[2021-05-07] MEDS: NOREPINEPHRINE 16 MG in SODIUM CHLORIDE 0.9% 234 ML IV PRN ×3 (11:35→23:51)
[2021-05-07] MEDS: SODIUM CHLORIDE 0.45% 1,000 ML IV SCH ×2 (11:38→21:20)
[2021-05-07] MEDS ORDERED: PHENYLEPHRINE INJ 80 MG in SODIUM CHLORIDE 0.9% 242 ML IV PRN (12:30)
[2021-05-07] MEDS: DEXMEDETOMIDINE 400 MCG in SODIUM CHLORIDE 0.9% 96 ML IV PRN (18:00)
[2021-05-07] MEDS: fentaNYL INJ 2,500 MCG in SODIUM CHLORIDE 0.9% 75 ML IV PRN (19:33)
[2021-05-07] MEDS: FAMOTIDINE 20 MG/2 ML VIAL IV SCH (20:24)
[2021-05-07] MEDS: MELATONIN 3 MG TABLET PO SCH (20:24)
[2021-05-07] MEDS: ENOXAPARIN 120 MG/0.8 ML SYRINGE SUBCUT SCH (20:24)
[2021-05-07] MEDS ORDERED: LACTATED RINGERS 500 ML IV ONE (21:21)
[2021-05-08] MEDS ORDERED: SODIUM BICARBONATE 50 MEQ/50 ML VIAL IV ONE ×2 (00:27→04:19)
[2021-05-08] MEDS: INSULIN REGULAR 100 UNIT/ML SUBCUT SCH ×4 (00:59→18:06)
[2021-05-08] MEDS: methylPREDNISolone SOD SUC 40 MG/1 ML VIAL IV SCH ×4 (01:49→18:24)
[2021-05-08 02:44] LABS: ABG Base Excess -0.3 MMOL/L (-2.5-2.5); ABG HCO3 23.9 MMOL/L (20-26); ABG Oxygen Saturation 89.4 % (95-100); ABG PO2 67.1 MM HG (80-95); ABG TCO2 28.1 MMOL/L (23-27)
[2021-05-08 02:46] LABS: ABG PH 7.199 (7.35-7.45)
[2021-05-08] MEDS: ALBUTEROL INHALER 18 GM INH SCH ×6 (03:06→23:08)
[2021-05-08 04:27] LABS: Calcium 6.4 MG/DL (8.5-10.1); Osmolality,Calculated 344.6 MOS/KG (273-304); Potassium 4.9 MMOL/L (3.5-5.1)
[2021-05-08 05:01] LABS: Basophils # 0.1 10*3/uL (0.0-0.2); Basophils % 0.2 % (0.0-0.8); Eosinophils # 0.1 10*3/uL (0.0-0.87); Eosinophils % 0.2 % (0.00-10.9); Hematocrit 55.2 VOL% (42.0-52.0); Immature Granulocytes % 1.8 %; Lymphocytes % 3.6 % (21.2-54.2); Mean Corpuscular HGB Conc 30.6 GM/DL (32-36); Mean Corpuscular Volume 99.6 FL (87-102); Mean Platelet Volume 11.7 FL (9.6-12.0); Monocytes % 6.8 % (1.7-12.7); NRBC # 0.34 10*3/uL; Neutrophils % 87.4 % (38.7-73.9); Platelet Count 262 T/CUMM (130-400); Red Blood Count 5.54 MC/CUMM (3.8-5.5); Red Cell Distribution Width 17.8 % (9.3-17.3); White Blood Count 27.6 T/CUMM (4-12)
[2021-05-08 05:05] LABS: Hemoglobin 16.9 GM/DL (14.0-18.0)
[2021-05-08 05:08] LABS: Band Neutrophils 1 % (0-10); Hypochromasia Slight; Lymphocytes 3 % (20-55); Segmented Neutrophils 93 % (50-85); Total Cells Counted 100
[2021-05-08 05:09] LABS: Macrocytosis 1+
[2021-05-08 05:10] LABS: Platelet Estimate Normal; Polychromasia Slight
[2021-05-08] MEDS: MEROPENEM 500 MG in SODIUM CHLORIDE 0.9% 100 ML IV SCH (05:17)
[2021-05-08] MEDS: DEXMEDETOMIDINE 400 MCG in SODIUM CHLORIDE 0.9% 96 ML IV PRN (07:00)
[2021-05-08] MEDS: SODIUM CHLORIDE 0.45% 1,000 ML IV SCH ×2 (07:20→19:36)
[2021-05-08] MEDS: MONTELUKAST 10 MG TABLET PO SCH (08:41)
[2021-05-08] MEDS: CETIRIZINE 10 MG TABLET PO SCH (08:42)
[2021-05-08] MEDS: ASCORBIC ACID 500 MG TABLET PO SCH ×2 (08:42→20:06)
[2021-05-08] MEDS: CHOLECALCIFEROL 5,000 UNIT TABLET PO SCH (08:42)
[2021-05-08] MEDS: THIAMINE 200 MG/2 ML VIAL IV SCH (08:42)
[2021-05-08] MEDS: ZINC GLUCONATE 50 MG TABLET PO SCH (08:42)
[2021-05-08] MEDS: ACETAMINOPHEN 325 MG TABLET PO PRN (08:50)
[2021-05-08] MEDS ORDERED: VANCOMYCIN INJ 2,000 MG in SODIUM CHLORIDE 0.9% 500 ML IV ONE (09:00)
[2021-05-08] MEDS: NOREPINEPHRINE 16 MG in SODIUM CHLORIDE 0.9% 234 ML IV PRN ×3 (11:57→23:18)
[2021-05-08] MEDS: fentaNYL INJ 2,500 MCG in SODIUM CHLORIDE 0.9% 75 ML IV PRN (17:25)
[2021-05-08] MEDS: MIDAZOLAM 100 MG in SODIUM CHLORIDE 0.9% 80 ML IV PRN (17:26)
[2021-05-08] MEDS ORDERED: DIGOXIN 0.5 MG/2 ML AMP ONE (18:30)
[2021-05-08] MEDS ORDERED: DIGOXIN 0.5 MG/2 ML AMP IV ONE ×2 (18:36→19:30)
[2021-05-08] MEDS ORDERED: ETOMIDATE 20 MG/10 ML VIAL IV ONE (19:52)
[2021-05-08] MEDS: MELATONIN 3 MG TABLET PO SCH (20:05)
[2021-05-08] MEDS: ENOXAPARIN 120 MG/0.8 ML SYRINGE SUBCUT SCH (20:05)
[2021-05-08] MEDS: FAMOTIDINE 20 MG/2 ML VIAL IV SCH (20:05)
[2021-05-08] MEDS ORDERED: AMIODARONE INJ 450 MG in DEXTROSE 5% 241 ML IV SCH (21:30)
[2021-05-09] MEDS: INSULIN REGULAR 100 UNIT/ML SUBCUT SCH ×3 (00:50→15:36)
[2021-05-09] MEDS: methylPREDNISolone SOD SUC 40 MG/1 ML VIAL IV SCH ×3 (02:03→15:36)
[2021-05-09] MEDS: ALBUTEROL INHALER 18 GM INH SCH ×3 (03:53→15:36)
[2021-05-09] MEDS: AMIODARONE INJ 450 MG in DEXTROSE 5% 241 ML IV SCH ×2 (03:54→06:12)
[2021-05-09] MEDS: NOREPINEPHRINE 16 MG in SODIUM CHLORIDE 0.9% 234 ML IV PRN ×2 (03:55→09:07)
[2021-05-09] MEDS: DEXMEDETOMIDINE 400 MCG in SODIUM CHLORIDE 0.9% 96 ML IV PRN (03:56)
[2021-05-09 04:23] LABS: ABG Base Excess -6.2 MMOL/L (-2.5-2.5); ABG HCO3 19.1 MMOL/L (20-26); ABG Oxygen Saturation 81.7 % (95-100); ABG PO2 58.5 MM HG (80-95); ABG TCO2 28.7 MMOL/L (23-27)
[2021-05-09 04:48] LABS: ABG PH 7.052 (7.35-7.45)
[2021-05-09 05:33] LABS: Basophils % 0.1 % (0.0-0.8); Eosinophils # 0.1 10*3/uL (0.0-0.87); Eosinophils % 0.3 % (0.00-10.9); Hemoglobin 17.1 GM/DL (14.0-18.0); Immature Granulocytes % 3.1 %; Lymphocytes # 0.8 10*3/uL (1.4-4.0); Lymphocytes % 2.3 % (21.2-54.2); Mean Corpuscular Volume 101.4 FL (87-102); Monocytes % 4.5 % (1.7-12.7); NRBC # 0.14 10*3/uL; Neutrophils % 89.7 % (38.7-73.9); Platelet Count 166 T/CUMM (130-400); Red Blood Count 5.62 MC/CUMM (3.8-5.5); Red Cell Distribution Width 17.4 % (9.3-17.3); White Blood Count 35.4 T/CUMM (4-12)
[2021-05-09 05:41] LABS: Band Neutrophils 2 % (0-10); Lymphocytes 5 % (20-55); Platelet Estimate Adequate; Segmented Neutrophils 91 % (50-85); Total Cells Counted 100
[2021-05-09 05:42] LABS: Macrocytosis Slight
[2021-05-09 05:44] LABS: Calcium 6.5 MG/DL (8.5-10.1); Osmolality,Calculated 337.3 MOS/KG (273-304)
[2021-05-09] MEDS: MEROPENEM 500 MG in SODIUM CHLORIDE 0.9% 100 ML IV SCH (06:11)
[2021-05-09 06:59] LABS: Potassium 6.5 MMOL/L (3.5-5.1)
[2021-05-09] MEDS ORDERED: SODIUM POLYSTYRENE SULFATE 15 GM/60 ML BOTTLE PO ONE (07:42)
[2021-05-09] MEDS: THIAMINE 200 MG/2 ML VIAL IV SCH (08:17)
[2021-05-09] MEDS: MONTELUKAST 10 MG TABLET PO SCH (08:18)
[2021-05-09] MEDS: ASCORBIC ACID 500 MG TABLET PO SCH (08:18)
[2021-05-09] MEDS: CHOLECALCIFEROL 5,000 UNIT TABLET PO SCH (08:18)
[2021-05-09] MEDS: ZINC GLUCONATE 50 MG TABLET PO SCH (08:18)
[2021-05-09] MEDS: CETIRIZINE 10 MG TABLET PO SCH (08:18)
[2021-05-09] MEDS ORDERED: INSULIN REGULAR 10 UNIT, CALCIUM GLUCONATE 1,000 MG in DEXTROSE 10% 250 ML IV ONE (08:30)
[2021-05-09] MEDS ORDERED: VANCOMYCIN INJ 2,000 MG in SODIUM CHLORIDE 0.9% 500 ML IV PRN (08:42)
[2021-05-09] MEDS ORDERED: ZINC OXIDE PASTE 113 GM TUBE TOP PRN (11:33)
[2021-05-09] MEDS: SODIUM CHLORIDE 0.45% 1,000 ML IV SCH (13:00)
[2021-05-09] MEDS ORDERED: MORPHINE 2 MG/1 ML SYRINGE IV PRN (13:04)
== END 2021-05-09 13:27 | disposition expired | DRG 207 ==
LOC: EDUNIT# → EDBD → N.ED 19:06 → N.EDINP 21:12 → SUATTDRO 21:12 → N.2E 22:38 → N.ICU 05-03 09:26 → N.CC 05-07 00:50
PROVIDERS: ADMIT Internal Medicine; ATTEND Internal Medicine